=== PATIENT | male | born 1965 | race Caucasian/White ===

== ENCOUNTER 2019-03-16 10:00 | Outpatient (CLI) | payer SELFPAY | END 2019-03-16 23:59 | disposition home or self-care (01) | LOC: HW VAS 10:00 | DX: Z13.6 Encounter for screening for cardiovascular disorders (principal) ==

== ENCOUNTER 2024-04-09 07:58 | Outpatient (CLI) | payer SELFPAY | END 2024-04-09 23:59 | disposition home or self-care (01) | LOC: VAS 07:58 | DX: Z13.6 Encounter for screening for cardiovascular disorders (principal) ==